=== PATIENT | female | born 1995 | race Caucasian/White ===

== ENCOUNTER 2017-05-07 22:10 | Emergency (ER) | payer BC, OTHER ==
[2017-05-07 22:34] VITALS: BP 137/96
== END 2017-05-08 00:30 | disposition left against medical advice (07) ==
LOC: ED 22:10
DX: R10.9 Unspecified abdominal pain (principal); Z53.21 Procedure and treatment not carried out due to patient leaving prior to being seen by health care provider

== ENCOUNTER 2017-05-08 11:33 | Emergency (ER) | payer BC ==
[2017-05-08 11:49] VITALS: BP 111/73
--- NOTE | 2017-05-08 12:24 | UC ---
Abdominal Pain Female HPI - HPI Summary HPI Summary: 21 yo female with 2-3 day hx of abd pain started epigastric region moved to RLQ feverish chills anorexia t max 100 acutely worsened last PM to 04/20 she waited 4 hours in ER then left pain now 01/18 has not been able to sleep the past 2 nights - History of Current Complaint Chief Complaint: UCAbdominalPain Stated Complaint: ABD PAIN Time Seen by Provider: 05/08/17 11:44 Hx Obtained From: Patient Hx Last Menstrual Period: 04/11/17 Onset/Duration: Gradual Onset, Lasting Days Timing: Constant Severity Initially: Mild Severity Currently: Moderate Pain Intensity: 6 - was 9 las PM Pain Scale Used: 0-10 Numeric Location: Discrete At: RLQ Radiates: No Radiates to: RLQ Character: Unable to describe Alleviating Factor(s): Nothing Associated Signs and Symptoms: Positive: Diaphoresis, Fever, Nausea Allergies/Adverse Reactions: Allergies Allergy/AdvReac Type Severity Reaction Status Date / Time No Known Allergies Allergy Verified 05/08/17 11:43 PMH/Surg Hx/FS Hx/Imm Hx Previously Healthy: Yes - Surgical History Surgery Procedure, Year, and Place: denies - Family History Known Family History: Positive: Hypertension - Social History Alcohol Use: Occasionally Substance Use Type: None Smoking Status (MU): Never Smoked Tobacco Review of Systems Constitutional: Fever, Chills Skin: Negative Eyes: Negative ENT: Negative Respiratory: Negative Cardiovascular: Negative Gastrointestinal: Abdominal Pain, Nausea Genitourinary: Negative Motor: Negative Neurovascular: Negative Musculoskeletal: Negative Neurological: Negative Psychological: Negative Is Patient Immunocompromised?: No All Other Systems Reviewed And Are Negative: Yes Physical Exam Triage Information Reviewed: Yes Appearance: Well-Appearing, No Pain Distress, Well-Nourished Vital Signs: Initial Vital Signs Temp 98.4 F 05/08/17 11:45 Pulse 105 05/08/17 11:45 Resp 20 05/08/17 11:45 BP 111/73 05/08/17 11:45 Pulse Ox 100 05/08/17 11:45 Vital Signs Reviewed: Yes Eyes: Positive: Conjunctiva Clear ENT: Positive: Hearing grossly normal. Negative: Nasal congestion, Nasal drainage, Trismus, Muffled/hoarse voice Neck: Positive: Supple, Nontender, No Lymphadenopathy Respiratory: Positive: Lungs clear, Normal breath sounds, No respiratory distress Cardiovascular: Positive: RRR, No Murmur, Tachycardia Abdomen Description: Positive: Soft. Negative: Nontender - paul tender RLQ, CVA Tenderness (R), CVA Tenderness (L) Musculoskeletal: Positive: ROM Intact, No Edema Neurological: Positive: Alert Psychological Exam: Normal Skin Exam: Normal Abd Pain Female Course/Dx - Course Course Of Treatment: Patient transfered to [facility]. She declines EMS transfer. AMA signed. Per policy: ED not notified due to patient not arriving via EMS - Differential Dx/Diagnosis Provider Diagnoses: RLQ abd pain of uncertain cause Discharge - Discharge Plan Condition: Stable Disposition: [facility] Referrals: [facility] - Milo BEATTY [Primary Care Provider] -
== END 2017-05-08 12:24 | disposition short-term general hospital (02) ==
LOC: UCEAST 11:33
DX: R10.31 Right lower quadrant pain (principal); Z32.02 Encounter for pregnancy test, result negative
CPT/HCPCS: 81003; 84702; 87086; 99212; G0463